=== PATIENT | male | born 1980 | race African-American/Black ===

== ENCOUNTER 2017-10-04 11:16 | Emergency (ER) | payer SELFPAY ==
[2017-10-04 11:48] LABS: #Basophils 0.1 thou/uL (0.0-0.2); #Eosinphils 0.1 thou/uL (0.0-0.7); #Lymphocytes 0.5 thou/uL (1.20-3.40); #Monocytes 0.9 thou/uL (0.11-0.59); #Neutrophils 4.2 thou/uL (1.40-6.50); %Basophils 1.1 % (0.0-1.0); %Eosinophils 2.5 % (0.0-10.0); %Lymphocytes 9.2 % (21.0-51.0); %Monocytes 14.6 % (0.0-10.0); %Neutrophils 72.7 % (42.0-75.0); Hemoglobin 9.3 g/dL (14.0-18.0); Mean Corpuscular HGB CONC 32.1 g/dL (32.0-36.0); Mean Corpuscular Volume 93.3 fl (80.0-94.0); Mean Platelet Volume 6.2 fL (7.4-10.4); Platelet Count 566 thou/uL (130-400); Red Blood Cell (RBC) Count 3.08 mill/uL (4.70-6.10); White Blood Cell (WBC) Count 5.8 thou/uL (4.8-10.8)
[2017-10-04 12:05] LABS: ALT (SGPT) 22 U/L (8-55); AST (SGOT) 24 U/L (5-34); Alkaline Phosphatase 80 U/L (40-150); Anion Gap 11 mmol/L (10-20); BUN (Urea Nitrogen) 7 mg/dL (8.9-20.6); Bilirubin, Total 0.4 mg/dL (0.2-1.2); CK (CPK) 219 U/L (30-200); Calc. Creatinine Clearance 0 mL/min (70-130); Carbon Dioxide 26 mmol/L (22-29); Estimated GFR-MDRD 64; Globulin 3.5 g/dL (2.4-3.5); Glucose 135 mg/dL (70-105); Lipase 33 U/L (8-78); Potassium 3.9 mmol/L (3.5-5.1); Protein, Total 7.5 g/dL (6.0-8.3); Sodium 137 mmol/L (136-145)
[2017-10-04 12:08] LABS: Troponin I Less than 0.010 ng/mL (< 0.028)
[2017-10-04 12:12] LABS: Chloride 104 mmol/L (98-107)
--- NOTE | 2017-10-04 12:21 | RAD ---
PORTABLE CHEST ONE VIEW: Date: 10-04-17 Time: 11:29 p.m. History: Chest pain. FINDINGS: The cardiomediastinum is normal. The lungs are well expanded and clear. No acute osseous abnormality is seen. IMPRESSION: No radiographic evidence of acute cardiopulmonary process. POS: [facility]
[2017-10-04] MEDS ORDERED: Ibuprofen 800 MG TAB ONE (12:24)
[2017-10-04] MEDS ORDERED: Acetaminophen 500 MG TAB ONE (12:24)
--- NOTE | 2017-10-05 12:19 | EKG ---
Test Reason : CP Blood Pressure : / mmHG Vent. Rate : 108 BPM Atrial Rate : 108 BPM P-R Int : 136 ms QRS Dur : 080 ms QT Int : 308 ms P-R-T Axes : 060 001 010 degrees QTc Int : 412 ms Sinus tachycardia Minimal voltage criteria for LVH, may be normal variant Nonspecific T wave abnormality Abnormal ECG Confirmed by YAQUELIN FARIA ([id number]), newspaper copy editor CHAYITO CONNELLY ([id number] on 10/05/2017 12:18:49 PM Referred By: Confirmed By:YAQUELIN FARIA
== END 2017-10-04 12:49 | disposition home or self-care (01) ==
LOC: ERS 11:16
DX: B34.9 Viral infection, unspecified (principal); J45.909 Unspecified asthma, uncomplicated; F32.9 Major depressive disorder, single episode, unspecified; F17.210 Nicotine dependence, cigarettes, uncomplicated
CPT/HCPCS: 36415; 71010; 80053; 82550; 82553; 83690; 83880; 84484; 85025; 93005

== ENCOUNTER 2017-11-01 07:10 | Emergency (ER) | payer SELFPAY | END 2017-11-01 07:39 | disposition home or self-care (01) | LOC: ERS 07:10 | DX: M25.512 Pain in left shoulder (principal); J45.909 Unspecified asthma, uncomplicated; F32.9 Major depressive disorder, single episode, unspecified; F17.210 Nicotine dependence, cigarettes, uncomplicated | CPT/HCPCS: 99283 ==

== ENCOUNTER 2019-05-06 12:11 | Emergency (ER) | payer OTHER ==
--- NOTE | 2019-05-06 14:33 | RAD ---
XR Elbow Lt 4 View STANDARD History: Pain Comparison: None. Findings: No acute fracture or malalignment. No significant joint effusion. Soft tissues are unremark able. Impression: No acute osseous abnormality.
[2019-05-06] MEDS ORDERED: Ketorolac Tromethamine 30 MG/ML VIAL ONE (14:37)
== END 2019-05-06 15:17 | disposition home or self-care (01) ==
LOC: ERS 12:11
DX: M25.522 Pain in left elbow (principal); F32.9 Major depressive disorder, single episode, unspecified; J45.909 Unspecified asthma, uncomplicated; Z79.899 Other long term (current) drug therapy
CPT/HCPCS: 96372; J1885

== ENCOUNTER 2019-10-05 20:44 | Emergency (ER) | payer OTHER ==
[2019-10-05] MEDS ORDERED: Dexamethasone 4 mg/ml Vial ONE (22:26)
[2019-10-05] MEDS ORDERED: Ketorolac Tromethamine 30 MG/ML VIAL ONE (22:26)
== END 2019-10-05 23:03 | disposition home or self-care (01) ==
LOC: ERS 20:44
DX: M70.72 Other bursitis of hip, left hip (principal); J45.909 Unspecified asthma, uncomplicated; F32.9 Major depressive disorder, single episode, unspecified; Z79.899 Other long term (current) drug therapy
CPT/HCPCS: 96372; 99283; J1100; J1885

== ENCOUNTER 2021-03-25 21:52 | Observation (INO) | payer OTHER, SELFPAY ==
[2021-03-25 22:35] LABS: #Basophils 0.1 thou/uL (0.0-0.2); #Eosinphils 0.1 thou/uL (0.0-0.7); #Lymphocytes 1.6 thou/uL (1.20-3.40); #Monocytes 0.9 thou/uL (0.11-0.59); #Neutrophils 5.7 thou/uL (1.40-6.50); %Basophils 1.2 % (0.0-1.0); %Eosinophils 1.4 % (0.0-10.0); %Lymphocytes 18.7 % (21.0-51.0); %Monocytes 10.4 % (0.0-10.0); %Neutrophils 68.3 % (42.0-75.0); Hemoglobin 14.7 g/dL (14.0-18.0); Mean Corpuscular HGB CONC 32.8 g/dL (32.0-36.0); Mean Corpuscular Hemoglobin 32.2 pg (27.0-31.0); Mean Corpuscular Volume 98.3 fL (78.0-98.0); Mean Platelet Volume 8.8 fL (7.4-10.4); Platelet Count 363 thou/uL (130-400); RBC Distribution Width 11.5 % (11.5-14.5); Red Blood Cell (RBC) Count 4.56 mill/uL (4.70-6.10); White Blood Cell (WBC) Count 8.3 thou/uL (4.8-10.8)
[2021-03-25 22:40] LABS: Actual Bicarbonate (HCO3v) 22 mEq/L (22-28); Analyzer IN Cardio ER; Base Excess -2.8 mEq/L (-2.0 to +3.0); Calcium, Ionized (venous) 1.03 mmol/L (1.16-1.32); Chloride (VBG) 93 mmol/L (98-106); Hemoglobin (Hb) 13.5 g/dL (13.2-17.3); Sodium 126.1 mmol/L (133-146); pH (venous) 7.38 (7.32-7.43)
[2021-03-25 22:48] LABS: ALT (SGPT) 43 U/L (8-55); AST (SGOT) 28 U/L (5-34); Albumin 4.2 g/dL (3.5-5.0); Alkaline Phosphatase 117 U/L (40-110); Anion Gap 19 mmol/L (10-20); BUN (Urea Nitrogen) 13 mg/dL (8.9-20.6); Bilirubin, Total 0.7 mg/dL (0.2-1.2); Calc. Creatinine Clearance 0 mL/min (70-130); Calcium 9.5 mg/dL (7.8-10.44); Carbon Dioxide 24 mmol/L (22-29); Chloride 88 mmol/L (98-107); Globulin 4.5 g/dL (2.4-3.5); Potassium 4.7 mmol/L (3.5-5.1); Protein, Total 8.7 g/dL (6.0-8.3); Sodium 126 mmol/L (136-145)
[2021-03-25 23:01] LABS: Glucose 804 mg/dL (70-105)
[2021-03-25 23:03] LABS: Bilirubin Negative (Negative); Blood, Urine Negative (Negative); Clarity Clear (Clear); Glucose, Urine (Dipstick) Greater than 1000 mg/dL (Negative); Ketone, Urine Negative (Negative); Leukocyte Negative Leu/uL (Negative); Nitrite Negative (Negative); Protein, Urine (Dipstick) Negative (Neg-Trace); Specific Gravity, Urine 1.034 (1.002-1.036); Urobilinogen Normal mg/dL (Less than 2)
[2021-03-25] MEDS ORDERED: Insulin Regular 300 UNITS/3 ML VIAL ONE (23:41)
[2021-03-26 01:20] LABS: Anion Gap 16 mmol/L (10-20); BUN (Urea Nitrogen) 11 mg/dL (8.9-20.6); Calc. Creatinine Clearance 0 mL/min (70-130); Calcium 8.3 mg/dL (7.8-10.44); Carbon Dioxide 19 mmol/L (22-29); Chloride 100 mmol/L (98-107); Glucose 545 mg/dL (70-105); Sodium 131 mmol/L (136-145)
[2021-03-26] MEDS ORDERED: Dextrose 50% Abboject 50 ML SYRINGE IVP PRN (02:45)
[2021-03-26] MEDS ORDERED: Dextrose 5% in Water 1,000 ML IV PRN (02:45)
[2021-03-26] MEDS ORDERED: Promethazine HCl 12.5 MG in Sodium Chloride 0.9% 50 ML IVPB PRN (04:03)
[2021-03-26] MEDS ORDERED: Ondansetron PF 4 MG/2 ML Vial IVP PRN (04:03)
[2021-03-26] MEDS ORDERED: Labetalol HCl 100 MG/20 ML VIAL SLOW IVP PRN (04:03)
[2021-03-26] MEDS ORDERED: cloNIDine 0.1 MG TAB PO PRN (04:03)
[2021-03-26] MEDS ORDERED: hydrALAZINE 20 MG/ML VIAL SLOW IVP PRN (04:03)
[2021-03-26] MEDS ORDERED: Acetaminophen 325 MG TAB PO PRN (04:03)
[2021-03-26] MEDS ORDERED: Electrolyte Replacement Protocol 1 EACH FS SCH (04:15)
[2021-03-26] MEDS: Sodium Chloride 0.9% 1,000 ML IV SCH ×3 (04:50→16:20)
[2021-03-26] MEDS: HumaLOG 300 UNITS/3 ML VIAL SC PRN ×2 (05:17→09:50)
[2021-03-26 05:28] VITALS: BMI 27.0
[2021-03-26 07:11] LABS: Anion Gap 12 mmol/L (10-20); BUN (Urea Nitrogen) 10 mg/dL (8.9-20.6); Calc. Creatinine Clearance 104 mL/min (70-130); Calcium 8.5 mg/dL (7.8-10.44); Carbon Dioxide 25 mmol/L (22-29); Chloride 103 mmol/L (98-107); Glucose 344 mg/dL (70-105); Potassium 3.2 mmol/L (3.5-5.1); Sodium 137 mmol/L (136-145)
[2021-03-26] MEDS ORDERED: Potassium Chloride 20 MEQ TAB PO SCH ×2 (07:30→16:00)
[2021-03-26] MEDS ORDERED: Famotidine 20 MG TAB PO SCH (09:00)
[2021-03-26] MEDS ORDERED: metFORMIN 500 MG TAB PO SCH (09:00)
[2021-03-26] MEDS ORDERED: Heparin 5,000 UNITS/ML VIAL SC SCH (09:00)
[2021-03-26] MEDS: HumuLIN 70/30 (300 UNITS/3 ML VIAL) SC SCH ×2 (09:50→16:20)
[2021-03-26 12:33] LABS: Anion Gap 10 mmol/L (10-20); BUN (Urea Nitrogen) 8 mg/dL (8.9-20.6); Calc. Creatinine Clearance 103 mL/min (70-130); Calcium 8.3 mg/dL (7.8-10.44); Carbon Dioxide 24 mmol/L (22-29); Chloride 106 mmol/L (98-107); Glucose 200 mg/dL (70-105); Potassium 3.4 mmol/L (3.5-5.1); Sodium 137 mmol/L (136-145)
[2021-03-26 15:52] LABS: SARS-CoV-2 PCR NAA for Saliva Not Detected (NotDetected)
[2021-03-26 15:54] VITALS: BP 135/82; TEMP 98.1
== END 2021-03-26 17:55 | disposition home or self-care (01) ==
LOC: ERS 21:52 → T4-A 03-26 02:54
PROVIDERS: ADMIT Internal Medicine; ATTEND Internal Medicine
DX: E11.65 Type 2 diabetes mellitus with hyperglycemia (principal); N17.9 Acute kidney failure, unspecified; I10 Essential (primary) hypertension; J45.909 Unspecified asthma, uncomplicated; F32.9 Major depressive disorder, single episode, unspecified; K27.9 Peptic ulcer, site unspecified, unspecified as acute or chronic, without hemorrhage or perforation; Z20.822 Contact with and (suspected) exposure to COVID-19; Z91.14 Patient's other noncompliance with medication regimen; Z79.4 Long term (current) use of insulin; Z79.899 Other long term (current) drug therapy
CPT/HCPCS: 36415; 36416; 80048; 80053; 81003; 82010; 82805; 85025; 96372; 96374; G0378; J1644; J1815; U0003; U0005

== ENCOUNTER 2021-12-12 20:38 | Emergency (ER) | payer SELFPAY | END 2021-12-12 21:15 | disposition home or self-care (01) | LOC: ERS 20:38 | DX: M25.571 Pain in right ankle and joints of right foot (principal); I10 Essential (primary) hypertension; E11.9 Type 2 diabetes mellitus without complications ==

== ENCOUNTER 2022-10-29 21:34 | Emergency (ER) | payer SELFPAY ==
[2022-10-29 23:05] LABS: #Basophils 0.1 thou/uL (0.0-0.2); #Eosinphils 0.3 thou/uL (0.0-0.7); #Lymphocytes 2.7 thou/uL (1.20-3.40); #Monocytes 0.6 thou/uL (0.11-0.59); #Neutrophils 3.5 thou/uL (1.40-6.50); %Basophils 1.3 % (0.0-1.0); %Eosinophils 4.4 % (0.0-10.0); %Lymphocytes 37.3 % (21.0-51.0); %Monocytes 8.3 % (0.0-10.0); %Neutrophils 48.6 % (42.0-75.0); Hemoglobin 14.9 g/dL (14.0-18.0); Mean Corpuscular HGB CONC 33.2 g/dL (32.0-36.0); Mean Corpuscular Hemoglobin 30.6 pg (27.0-31.0); Mean Platelet Volume 7.8 fL (7.4-10.4); Platelet Count 345 10x3/uL (130-400); RBC Distribution Width 12.9 % (11.5-14.5); Red Blood Cell (RBC) Count 4.87 mill/uL (4.70-6.10); White Blood Cell (WBC) Count 7.2 10x3/uL (4.8-10.8)
[2022-10-29 23:26] LABS: ALT (SGPT) 28 U/L (8-55); AST (SGOT) 17 U/L (5-34); Albumin 3.9 g/dL (3.5-5.0); Alkaline Phosphatase 90 U/L (40-110); Anion Gap 13 mmol/L (10-20); BUN (Urea Nitrogen) 17 mg/dL (8.9-20.6); Bilirubin, Total 0.4 mg/dL (0.2-1.2); CK (CPK) 254 U/L (30-200); Calc. Creatinine Clearance 0 mL/min (70-130); Calcium 9.1 mg/dL (7.8-10.44); Carbon Dioxide 27 mmol/L (22-29); Chloride 102 mmol/L (98-107); Estimated GFR 89; Globulin 3.4 g/dL (2.4-3.5); Glucose 306 mg/dL (70-105); Protein, Total 7.3 g/dL (6.0-8.3); Sodium 138 mmol/L (136-145)
[2022-10-29] MEDS ORDERED: HYDROcodone/Acetaminophen 10/325 mg Tablet ONE (23:53)
== END 2022-10-30 00:02 | disposition home or self-care (01) ==
LOC: ERS 21:34
DX: K02.9 Dental caries, unspecified (principal); R07.9 Chest pain, unspecified; I10 Essential (primary) hypertension; E11.9 Type 2 diabetes mellitus without complications; Z79.84 Long term (current) use of oral hypoglycemic drugs
CPT/HCPCS: 71045; 80053; 82550; 83880; 84484; 85025; 93005

== ENCOUNTER 2023-01-30 02:06 | Inpatient (IN) | payer BC, SELFPAY ==
[2023-01-30 02:30] LABS: #Basophils 0.1 thou/uL (0.0-0.2); #Eosinphils 0.3 thou/uL (0.0-0.7); #Monocytes 0.6 thou/uL (0.11-0.59); %Basophils 1.4 % (0.0-1.0); %Eosinophils 3.6 % (0.0-10.0); %Lymphocytes 37.4 % (21.0-51.0); %Monocytes 7.8 % (0.0-10.0); %Neutrophils 49.7 % (42.0-75.0); Hemoglobin 15.6 g/dL (14.0-18.0); Mean Corpuscular HGB CONC 35.5 g/dL (32.0-36.0); Mean Corpuscular Hemoglobin 33.2 pg (27.0-31.0); Mean Corpuscular Volume 93.5 fl (78.0-98.0); Mean Platelet Volume 7.3 fL (7.4-10.4); Platelet Count 341 10x3/uL (130-400); RBC Distribution Width 11.9 % (11.5-14.5)
[2023-01-30 02:50] LABS: ALT (SGPT) 27 U/L (8-55); AST (SGOT) 27 U/L (5-34); Albumin 4.2 g/dL (3.5-5.0); Alkaline Phosphatase 75 U/L (40-110); Anion Gap 13 mmol/L (10-20); BUN (Urea Nitrogen) 10 mg/dL (8.9-20.6); Bilirubin, Total 0.5 mg/dL (0.2-1.2); Calc. Creatinine Clearance 0 mL/min (70-130); Calcium 9.5 mg/dL (7.8-10.44); Carbon Dioxide 27 mmol/L (22-29); Chloride 104 mmol/L (98-107); Estimated GFR 75; Globulin 3.1 g/dL (2.4-3.5); Glucose 179 mg/dL (70-105); Potassium 4.2 mmol/L (3.5-5.1); Protein, Total 7.3 g/dL (6.0-8.3); Sodium 140 mmol/L (136-145)
[2023-01-30] MEDS ORDERED: Aspirin Chewable 81 MG TAB ONE ×2 (03:25)
[2023-01-30 03:35] LABS: CKMB 4.2 ng/mL (0-6.6)
[2023-01-30] MEDS ORDERED: Acetaminophen 325 MG TAB PO PRN (04:00)
[2023-01-30] MEDS ORDERED: Ondansetron PF 4 MG/2 ML Vial IVP PRN (04:00)
[2023-01-30] MEDS ORDERED: Nitroglycerin 0.4 MG TAB (25 Tab Bottle) SL PRN (04:03)
[2023-01-30] MEDS ORDERED: Dextrose 5% in Water 1,000 ML IV PRN (04:04)
[2023-01-30] MEDS ORDERED: HumaLOG 300 UNITS/3 ML VIAL SC PRN ×2 (04:04)
[2023-01-30] MEDS ORDERED: Dextrose 50% Abboject 50 ML SYRINGE SLOW IVP PRN (04:04)
[2023-01-30 04:36] VITALS: BMI 29.5
[2023-01-30 06:02] LABS: Hemoglobin A1c 6.8 % (4.0-6.0)
[2023-01-30 06:09] LABS: Cardiac Risk 5.5 (Less than 4.5)
[2023-01-30 06:16] LABS: Critical Call Chem Troponin I RESULT DECREASING; Troponin I 0.313 ng/mL (< 0.028)
[2023-01-30] MEDS ORDERED: Pantoprazole 40 MG VIAL ONE (08:51)
[2023-01-30] MEDS ORDERED: Aspirin 81 mg Enteric Coated Tablet ONE (08:51)
[2023-01-30] MEDS ORDERED: Sertraline 100 MG TAB PO SCH (09:00)
[2023-01-30] MEDS: Aspirin 81 mg Enteric Coated Tablet PO SCH (09:03)
[2023-01-30 09:43] LABS: Troponin I 0.327 ng/mL (< 0.028)
[2023-01-30] MEDS ORDERED: Iopamidol 370 76% 100 ML VIAL ONE (10:39)
[2023-01-30] MEDS ORDERED: Communication Order-Pharmacy FS SCH ×2 (12:45→16:45)
[2023-01-30] MEDS ORDERED: fentaNYL 50 mcg/mL 1 mL Vial ONE ×2 (13:37→14:46)
[2023-01-30] MEDS ORDERED: HEPARIN ONE (13:37)
[2023-01-30] MEDS ORDERED: Midazolam HCl 2 mg/2 ml Vial ONE ×2 (13:37→14:46)
[2023-01-30] MEDS ORDERED: Heparin 10,000 UNITS/ 10 ML VIAL ONE (13:37)
[2023-01-30] MEDS ORDERED: Verapamil 5 MG/2 ML VIAL ONE ×2 (13:37→13:53)
[2023-01-30] MEDS ORDERED: D5W ONE (13:37)
[2023-01-30] MEDS ORDERED: Lidocaine 1% (PF) 30 ML VIAL ONE (13:38)
[2023-01-30] MEDS ORDERED: Nitroglycerin 50 MG/250 ML BOT 250 ML ONE (13:38)
[2023-01-30] MEDS ORDERED: Adenosine 6 MG/2 ML VIAL ONE (13:53)
[2023-01-30] MEDS ORDERED: Nitroglycerin 2% Ointment 1 INCH/1 GM Packet ONE (14:46)
[2023-01-30] MEDS ORDERED: Nitroglycerin 4.9 GM Bottle ONE (15:08)
[2023-01-30] MEDS ORDERED: Milk Of Magnesia 30 ML UDCUP PO PRN (16:32)
[2023-01-30] MEDS ORDERED: Sodium Chloride 0.9% 1,000 ML IV SCH (16:45)
[2023-01-30] MEDS: Sertraline 25 MG TAB PO SCH (17:51)
[2023-01-30] MEDS: Atorvastatin Calcium 40 MG TAB PO SCH ×2 (20:27→20:33)
[2023-01-30] MEDS: Amlodipine 5 MG TAB PO SCH (20:30)
[2023-01-30] MEDS: Morphine 2 MG/ML VIAL SLOW IVP PRN (20:33)
[2023-01-31 05:08] LABS: #Basophils 0.1 thou/uL (0.0-0.2); #Eosinphils 0.3 thou/uL (0.0-0.7); #Lymphocytes 2.1 thou/uL (1.20-3.40); #Monocytes 0.7 thou/uL (0.11-0.59); #Neutrophils 3.6 thou/uL (1.40-6.50); %Basophils 1.5 % (0.0-1.0); %Lymphocytes 31.6 % (21.0-51.0); %Monocytes 9.8 % (0.0-10.0); %Neutrophils 53.1 % (42.0-75.0); Hemoglobin 13.6 g/dL (14.0-18.0); Mean Corpuscular HGB CONC 35.6 g/dL (32.0-36.0); Mean Corpuscular Hemoglobin 32.9 pg (27.0-31.0); Mean Corpuscular Volume 92.3 fl (78.0-98.0); Mean Platelet Volume 7.1 fL (7.4-10.4); Platelet Count 292 10x3/uL (130-400); RBC Distribution Width 11.7 % (11.5-14.5); Red Blood Cell (RBC) Count 4.13 mill/uL (4.70-6.10); White Blood Cell (WBC) Count 6.8 10x3/uL (4.8-10.8)
[2023-01-31 05:31] LABS: ALT (SGPT) 20 U/L (8-55); AST (SGOT) 17 U/L (5-34); Albumin 3.5 g/dL (3.5-5.0); Alkaline Phosphatase 66 U/L (40-110); Anion Gap 11 mmol/L (10-20); BUN (Urea Nitrogen) 8 mg/dL (8.9-20.6); Bilirubin, Total 0.9 mg/dL (0.2-1.2); Calc. Creatinine Clearance 136 mL/min (70-130); Calcium 8.5 mg/dL (7.8-10.44); Carbon Dioxide 27 mmol/L (22-29); Chloride 105 mmol/L (98-107); Estimated GFR 102; Globulin 2.6 g/dL (2.4-3.5); Glucose 153 mg/dL (70-105); Potassium 3.9 mmol/L (3.5-5.1); Protein, Total 6.1 g/dL (6.0-8.3); Sodium 139 mmol/L (136-145)
[2023-01-31] MEDS: Sertraline 25 MG TAB PO SCH (05:53)
[2023-01-31] MEDS: Aspirin 81 mg Enteric Coated Tablet PO SCH (05:53)
[2023-01-31] MEDS: Losartan 25 MG TAB PO SCH (05:54)
[2023-01-31] MEDS ORDERED: Midazolam HCl 2 mg/2 ml Vial ONE (06:16)
[2023-01-31] MEDS ORDERED: fentaNYL 50 mcg/mL 1 mL Vial ONE (06:16)
[2023-01-31] MEDS ORDERED: Heparin 10,000 UNITS/ 10 ML VIAL ONE (06:17)
[2023-01-31] MEDS ORDERED: Nitroglycerin 50 MG/250 ML BOT 250 ML ONE (06:17)
[2023-01-31] MEDS ORDERED: Adenosine 6 MG/2 ML VIAL ONE (06:17)
[2023-01-31] MEDS ORDERED: Verapamil 5 MG/2 ML VIAL ONE (06:17)
[2023-01-31] MEDS ORDERED: Lidocaine 1% (PF) 30 ML VIAL ONE (06:17)
[2023-01-31] MEDS ORDERED: Atropine Sulfate 1 mg/10 ml Syringe ONE (07:14)
[2023-01-31] MEDS ORDERED: EPINEPHrine 1 MG/10 ML Abboject SYRINGE ONE (07:14)
[2023-01-31] MEDS ORDERED: TICAGRELOR 90 MG TABLET ONE (08:02)
[2023-01-31] MEDS ORDERED: Rosuvastatin 5 MG TAB PO SCH (09:00)
[2023-01-31] MEDS ORDERED: Non-Formulary Item 1 EACH (Losartan Potassium [Losartan Potassium] 100 MG Tablet) PO SCH (09:00)
[2023-01-31] MEDS ORDERED: Ondansetron PF 4 MG/2 ML Vial ONE ×2 (10:00→11:21)
[2023-01-31] MEDS ORDERED: Morphine 2 MG/ML VIAL ONE (11:06)
[2023-01-31] MEDS: Morphine 2 MG/ML VIAL SLOW IVP PRN (11:15)
[2023-01-31] MEDS: Sodium Chloride 0.9% 1,000 ML IV SCH (12:25)
[2023-01-31] MEDS: Atorvastatin Calcium 40 MG TAB PO SCH ×2 (19:55→21:28)
[2023-01-31] MEDS: Amlodipine 5 MG TAB PO SCH (21:28)
[2023-02-01] MEDS: Sodium Chloride 0.9% 1,000 ML IV SCH (04:56)
[2023-02-01 05:28] LABS: #Basophils 0.1 thou/uL (0.0-0.2); #Eosinphils 0.2 thou/uL (0.0-0.7); #Lymphocytes 1.8 thou/uL (1.20-3.40); #Monocytes 0.6 thou/uL (0.11-0.59); #Neutrophils 4.6 thou/uL (1.40-6.50); %Basophils 1.1 % (0.0-1.0); %Eosinophils 2.5 % (0.0-10.0); %Lymphocytes 24.7 % (21.0-51.0); %Monocytes 8.3 % (0.0-10.0); %Neutrophils 63.5 % (42.0-75.0); Hemoglobin 13.5 g/dL (14.0-18.0); Mean Corpuscular Hemoglobin 31.6 pg (27.0-31.0); Mean Corpuscular Volume 93.1 fl (78.0-98.0); Mean Platelet Volume 7.4 fL (7.4-10.4); Platelet Count 324 10x3/uL (130-400); RBC Distribution Width 11.7 % (11.5-14.5); Red Blood Cell (RBC) Count 4.27 mill/uL (4.70-6.10); White Blood Cell (WBC) Count 7.3 10x3/uL (4.8-10.8)
[2023-02-01 06:03] LABS: ALT (SGPT) 25 U/L (8-55); AST (SGOT) 21 U/L (5-34); Albumin 3.7 g/dL (3.5-5.0); Alkaline Phosphatase 75 U/L (40-110); Anion Gap 13 mmol/L (10-20); BUN (Urea Nitrogen) 11 mg/dL (8.9-20.6); Bilirubin, Total 0.8 mg/dL (0.2-1.2); Calc. Creatinine Clearance 116 mL/min (70-130); Calcium 8.9 mg/dL (7.8-10.44); Carbon Dioxide 23 mmol/L (22-29); Chloride 106 mmol/L (98-107); Estimated GFR 89; Globulin 2.8 g/dL (2.4-3.5); Glucose 189 mg/dL (70-105); Potassium 4.1 mmol/L (3.5-5.1); Protein, Total 6.5 g/dL (6.0-8.3); Sodium 138 mmol/L (136-145)
[2023-02-01] MEDS ORDERED: Clopidogrel Bisulfate 75 MG TAB PO SCH (09:00)
[2023-02-01] MEDS: Sertraline 25 MG TAB PO SCH (10:51)
[2023-02-01] MEDS: Losartan 25 MG TAB PO SCH (10:52)
[2023-02-01] MEDS: Aspirin 81 mg Enteric Coated Tablet PO SCH (10:52)
[2023-02-01 12:17] VITALS: BP 153/95; TEMP 98.4
[2023-02-01] MEDS ORDERED: Rosuvastatin 20 MG TAB PO SCH (21:00)
== END 2023-02-01 13:10 | disposition home or self-care (01) | DRG 247 ==
LOC: ERS 02:06 → ERHOLD 03:53 → 2SW 09:29
PROVIDERS: ADMIT Internal Medicine; ATTEND Internal Medicine
PROC: 4A023N7 Measurement of Cardiac Sampling and Pressure, Left Heart, Percutaneous Approach (ICD-10-PCS; 2023-01-30)
PROC: B2151ZZ Fluoroscopy of Left Heart using Low Osmolar Contrast (ICD-10-PCS; 2023-01-30)
PROC: B2111ZZ Fluoroscopy of Multiple Coronary Arteries using Low Osmolar Contrast (ICD-10-PCS; 2023-01-30)
PROC: 027135Z Dilation of Coronary Artery, Two Arteries with Two Drug-eluting Intraluminal Devices, Percutaneous Approach (ICD-10-PCS; principal; 2023-01-31)
PROC: B240ZZ3 Ultrasonography of Single Coronary Artery, Intravascular (ICD-10-PCS; 2023-01-31)
DX: I21.4 Non-ST elevation (NSTEMI) myocardial infarction (principal); I25.110 Atherosclerotic heart disease of native coronary artery with unstable angina pectoris; E11.9 Type 2 diabetes mellitus without complications; E78.5 Hyperlipidemia, unspecified; I10 Essential (primary) hypertension; F32.A Depression, unspecified; F41.9 Anxiety disorder, unspecified; Z87.11 Personal history of peptic ulcer disease; Z79.84 Long term (current) use of oral hypoglycemic drugs; Z79.4 Long term (current) use of insulin; Z79.899 Other long term (current) drug therapy; Z98.890 Other specified postprocedural states; Z87.891 Personal history of nicotine dependence
CPT/HCPCS: 36415; 36416; 71045; 80053; 80061; 82553; 83036; 84484; 85025; 85347; 92928; 92978; 93005; 93010; 93454; 93458; 93798; 96372; 99152; 99153; C1753; C1769; C1874; C1887; C1894; C9113; C9600; J0153; J0171; J0461; J1644; J1650; J2001; J2250; J2272; J2405; J3010; J7050; Q9967

== ENCOUNTER 2023-11-18 19:44 | Emergency (ER) | payer BC | END 2023-11-18 22:25 | disposition home or self-care (01) | LOC: ERS 19:44 | DX: H61.22 Impacted cerumen, left ear (principal); H60.92 Unspecified otitis externa, left ear; E11.9 Type 2 diabetes mellitus without complications; I10 Essential (primary) hypertension; I25.2 Old myocardial infarction | CPT/HCPCS: 99282 ==